=== PATIENT | female | born 2000 | race Caucasian/White ===

== ENCOUNTER 2021-03-02 12:54 | Emergency (ER) | payer SELFPAY ==
[~2021-03-02 12:54] MED LIST: Iopamidol-370 76% 500 ML 1 ML ONE
== END 2021-03-02 16:20 | disposition home or self-care (01) ==
LOC: ERS 12:54
DX: R10.13 Epigastric pain (principal); R11.2 Nausea with vomiting, unspecified; D72.829 Elevated white blood cell count, unspecified; R10.813 Right lower quadrant abdominal tenderness; Z79.899 Other long term (current) drug therapy
CPT/HCPCS: 74177; 83690; Q9967